=== PATIENT | female | born 1990 | race Caucasian/White ===

== ENCOUNTER → 2018-09-28 | Outpatient (CLI) | payer BC ==
--- NOTE | 2018-09-28 15:31 | Diagnostic Imaging Report ---
INDICATION: survey. TECHNIQUE: Multiple real-time grayscale images were obtained over the gravid uterus. COMPARISON: No priors. FINDINGS: A carreon gestation is in transverse position, head appears to be the maternal right based upon the submitted images. The placenta is anterior with no abruption or previa. Cervix is nondilated at 6.2 cm in length. The amniotic fluid volume appeared normal. No pathological finding at the anatomical survey. Heart rate is regular at 130 beats per minute. IMPRESSION: Carreon viable IUP measures 22 weeks 0 days with normal anatomical survey. Biometrical measurements are as follows: Biparietal 5.45 cm, age 22 weeks 5 days. Head circumference 20.59 cm, age 22 weeks 5 days. Abdominal circumference 16.74 cm, age 21 weeks 6 days. Femur length 3.37 cm, age 20 weeks 4 days. Sonographic estimate age: 22 weeks 0 days. Sonographic estimated date of delivery: 02/01/2019. Estimated Weight: 422 gm (+/- 62 gm). LMP percentile: 29%. heart rate: 130 beats per minute. number: 1 of 1. Dictated by: Dictated on workstation # [id number]
== END ==
LOC: RAD 10:53
PROVIDERS: ATTEND Obstetrics & Gynecology
DX: Z36.89 Encounter for other specified antenatal screening (principal); Z3A.22 22 weeks gestation of pregnancy
CPT/HCPCS: 76805

== ENCOUNTER 2019-01-14 17:56 | Outpatient (CLI) | payer BC ==
[~2019-01-14] VITALS: Ht 162.6 cm; Wt 83.5 kg
--- NOTE | 2019-01-14 18:00 | NUR ---
RAO TOLENTINO presented to unit via AMBULATORY from ED, accompanied by , with c/o ABD CRAMPING. RAO TOLENTINO weighed, gowned, voided, and to bed. EFHM and TOCO applied, VS taken. RAO TOLENTINO oriented to bed controls, call light, TV, heat, and A/C controls.
--- NOTE | 2019-01-14 18:40 | NUR ---
THIS RN CALLS DR JIMENEZ WITH PT REPORT. CO CRAMPING/ POSSIBLE UC. UC 2-4 MIN, PALPATING MODERATE. PT RATES PAIN 01/24. URINE DIP RESULTS. SVE 0.5CM/THICK. DENIES INTERCOURSE IN THE LAST 2 DAYS. ORDERS RECEIVED BY BY DR JIMENEZ TO START IV. GIVE 500ML BOLUS OF LR THEN 250ML/HR. RECHECK SVE AND CALL BACK AFTER IV FLUIDS
[2019-01-14] MEDS ORDERED: LACTATED RINGERS 500 ML IV SCH (18:45)
[2019-01-14] MEDS ORDERED: LACTATED RINGERS 1,000 ML IV SCH (19:00)
--- NOTE | 2019-01-14 19:10 | NUR ---
REPORT GIVEN TO CARLY FAUSTIN AT THIS TIME.
[2019-01-14] MEDS ORDERED: TERBUTALINE INJ 1 MG/ML (BRETHINE) AMP ONE (19:53)
[2019-01-14] MEDS ORDERED: TERBUTALINE INJ 1 MG/ML (BRETHINE) AMP SC ONE (20:00)
[2019-01-14] MEDS ORDERED: PREN1.4T2 PO (21:17)
--- NOTE | 2019-01-14 21:30 | NUR ---
Discharge packet given and explained, understanding voiced per pt. Ambulatory off unit at this time, no ss distress no concerns noted.
--- NOTE | 2019-01-18 12:38 | Physician Query-Final Dx ---
THEODORE GONSALVES 01/18/19 1238: Final Diagnosis Give Final Diagnosis Please give Final Diagnosis Dr March Please give a final diagnosis and please include the weeks of gestation thank you DALLAS MARCH DO 01/24/19 0718: Final Diagnosis Give Final Diagnosis Intrauterine at 36 weeks Contractions THEODORE GONSALVES Jan 18, 2019 12:38 DALLAS MARCH DO Jan 24, 2019 07:18
[2019-01-25] MEDS ORDERED: IBUP-844 PO (07:21)
== END 2019-01-14 21:30 | disposition home or self-care (01) ==
LOC: LDRP 17:56 → WSo 17:56
PROVIDERS: ATTEND Obstetrics & Gynecology
DX: O62.9 Abnormality of forces of labor, unspecified (principal); Z3A.36 36 weeks gestation of pregnancy
CPT/HCPCS: 96360; 96361; 96372; 99214

== ENCOUNTER 2019-01-22 00:45 | Outpatient (CLI) | payer BC ==
[~2019-01-22] VITALS: Ht 162.6 cm; Wt 83.5 kg
[~2019-01-22 00:45] MED LIST: PREN1.4T2 PO
--- NOTE | 2019-01-22 00:49 | NUR ---
RAO TOLENTINO presented to unit via ambulation from ED, accompanied by s.o., with c/o CONTRACTIONS, FLUID LEAKAGE. RAO TOLENTINO weighed, gowned, voided, and to bed. EFHM and TOCO applied, VS taken. RAO TOLENTINO oriented to bed controls, call light, TV, heat, and A/C controls.
[2019-01-22 01:00] VITALS: BP 157/96
[2019-01-22 01:05] VITALS: BP 157/96
[2019-01-22 01:08] VITALS: BP 124/72
[2019-01-22 01:11] VITALS: BP_SYST 136
[2019-01-22 01:15] VITALS: BP 161/75
[2019-01-22 01:20] VITALS: BP 135/89
[2019-01-22] MEDS ORDERED: NS IV 1000 ML 1,000 ML ONE (02:04)
[2019-01-22] MEDS ORDERED: NS IV 1000 ML 1,000 ML IV ONE (02:15)
[2019-01-22] MEDS ORDERED: PROMETHAZINE INJ 25 MG/ML (PHENERGAN) AMP IVP ONE (02:15)
[2019-01-22] MEDS ORDERED: PROMETHAZINE INJ 25 MG/ML (PHENERGAN) AMP ONE (02:15)
[2019-01-22 02:50] LABS: BILIRUBIN,URINE NEGATIVE (NEGATIVE); CLARITY,URINE CLEAR; COLOR,URINE YELLOW; GLUCOSE, URINE (UA) NEGATIVE (NEGATIVE); KETONES,URINE NEGATIVE (NEGATIVE); LEUKOCYTE ESTERASE ,URINE 3+ (NEGATIVE); NITRITE,URINE NEGATIVE (NEGATIVE); PH,URINE 7 (5-9); PROTEIN,URINE NEGATIVE (NEGATIVE); RBC,URINE 0-2 /HPF; UROBILINOGEN,URINE NORMAL (NORMAL)
[2019-01-22 02:51] LABS: BACTERIA,URINE FEW /HPF
--- NOTE | 2019-01-22 03:48 | NUR ---
Discharge instructions discussed with pt and family members. Pt denies any questions or concerns. IV removed. Signature sheet signed, placed on chart. Offered wheelchair, denied per pt. Pt ambulating off unit to private vehicle with family members at side. No signs of distress noted.
--- NOTE | 2019-01-23 11:52 | Physician Query-Final Dx ---
Final Diagnosis Give Final Diagnosis Please give Final Diagnosis 37 week gestation threatened labor/contractions GALE YANG DO Jan 23, 2019 11:52
[2019-01-23] MEDS ORDERED: ACET325C5 PO (14:04)
[2019-01-23] MEDS ORDERED: FAMO40TA72 PO (14:04)
[2019-01-23] MEDS ORDERED: PREN1TAB79 PO (14:04)
[2019-01-23] MEDS ORDERED: CALC300T4 PO (14:04)
== END 2019-01-22 03:48 | disposition home or self-care (01) ==
LOC: WSo 00:45 → LDRP 00:46 → WSo 03:48
PROVIDERS: ATTEND Obstetrics & Gynecology
DX: O47.1 False labor at or after 37 completed weeks of gestation (principal); Z3A.37 37 weeks gestation of pregnancy
CPT/HCPCS: 81000; 87088; 96361; 96374; 99214

== ENCOUNTER 2019-01-23 11:13 | Inpatient (IN) | payer BC ==
[2019-01-23] VITALS (45 sets, daily range): BP systolic 97–161; BP diastolic 59–102
[~2019-01-23] VITALS: Ht 162.6 cm; Wt 83.5 kg
[2019-01-23] MEDS ORDERED: MINERAL OIL CONCENTRATE 99.9% 15 ML UDC TOP PRN (11:30)
[2019-01-23] MEDS ORDERED: OXYTOCIN/NORMAL SALINE 500 ML IV ONE ×2 (11:43→23:16)
[2019-01-23] MEDS ORDERED: SUFENTA 0.6MCG/ML BUPIVA 0.125 100 ML ONE (11:44)
[2019-01-23 11:53] LABS: BASOPHILS % (AUTO) 0 % (0-10); EOSINOPHILS % (AUTO) 0 % (0-10); HEMATOCRIT 40 % (35-52); LYMPHOCYTES % (AUTO) 7 % (12-44); MEAN CORPUSCULAR HEMOGLOBIN 34 PG (25-34); MEAN CORPUSCULAR HGB CONC 35 G/DL (32-36); MEAN CORPUSCULAR VOLUME 96 FL (80-99); MEAN PLATELET VOLUME 11.6 FL (7.4-10.4); MONOCYTES # (AUTO) 0.5 X 10^3 (0.0-1.0); MONOCYTES % (AUTO) 4 % (0-12); NEUTROPHILS % (AUTO) 89 % (42-75); PLATELET COUNT 216 10^3/uL (130-400); RED CELL DISTRIBUTION WIDTH 12.4 % (10.0-14.5); WHITE BLOOD COUNT 13.6 10^3/uL (4.3-11.0)
[2019-01-23] MEDS: D5 LR IV SOLUTION 1,000 ML IV SCH ×2 (11:55→19:48)
--- NOTE | 2019-01-23 11:59 | History & Physical-OB ---
OB - Chief Complaint & HPI Date/Time Date of Admission: Date of Admission: Jan 23, 2019 at 11:25 am Date seen by a Provider: Jan 23, 2019 Time Seen by a Provider: 12:10 Chief Complaint/History OB-Reason for Admission/Chief: Onset of Labor Hx : 1 Hx Para: 0 Expected Date of Delivery: Feb 10, 2019 Gestational Age in Weeks: 37 Gestational Age in Days: 4 Admission Nurse Assessment Rev: Yes History of Labs A+/- VDRL NR Rub I Hep C - HIV - HBsAg - GBS - Other Came to women's services early am of 01/22/ with complaint of mucoid dc and contractions. She did not have ROM. She did not make cervical change during the time she was evaluated (1 cm dilation, also the same in the office on Thursday). She did have an elevated BP, though I was not informed of this by nursing. Her repeat BP was wnl. She presents today for continued contractions. Cervix 4/100/0. Also complains of two days of vomiting (though she did not mention this yesterday or in the office on Thursday). BP 145/102 but she is in acute pain. Labs and repeat BP are pending. She will be admitted for active labor and anticipate . well being is reassuring. Allergies and Home Medications Allergies Coded Allergies: No Known Drug Allergies (Unverified , 01/14/19) Home Medications Comb No.42/Folic Acid 1.4 Mg Tab.ch.bph, 1.4 MG PO DAILY, (Reported) Patient Home Medication List Home Medication List Reviewed: Yes OB - History Hx of Present Care: Yes Ultrasounds: Normal mid trimester US Obstetrical Complications: None Medical Complications: None Information Induced Hypertension: No Maternal Gestational Diabetes: No Hemorrhage: No Obstetrical History Hx : 1 Hx Para: 0 Hx # Term Pregnancies: 0 Hx # Pregnancies: 0 Number of Living Children: 0 Hx Termination: No Patient Past Medical History NC Social History/Family History HIV/AIDS: No Recent Infectious Disease Expo: No Sexually Transmitted Disease: No Alcohol Use: Denies Use Recreational Drug Use: No Smoking Cessation: Former smoker Immunizations Hepatitis A: No Hepatitis B: Yes Tetanus Booster (TDap): Less than 5yrs Date of Pneumonia Vaccine: Nov 15, 2018 Rubella: immune RPR/VDRL: Negative GBS Status: Negative HBsAG: Negative OB - Admission Exam Physical Exam Vitals: Vital Signs 01/23/19 11:20 Temp 98.0 Pulse 108 Resp 22 B/P (MAP) 145/102 (116) O2 Delivery Room Air Heart: Rhythm Normal Lungs: Clear Abdomen: Gravid Extremities: Edema Reflexes: Normal Cervical Dilatation: 4cm Effacement: 100% Station: 0 Membranes: Intact Heart Rate: 130's Accelerations: Accelerations Present Decelerations: No Decelerations Short Term Variability: Present Skilled Nursing Variability: Average (6-25) Contractions on Admission: < 5 Minutes Apart Labs Laboratory Tests Test 01/23/19 11:43 Range/Units OB - Assessment/Plan/Diagnosis Assessment Assessment: active labor, other (elevated blood pressures, labs and repeat BP/ prot/creat ratio are pending.) Admission Dx 1. spontaneous labor at 37 weeks gestation 2. elevated blood pressures, rule out preeclampsia Admission Status: Inpatient Order (span 2 midnights) (labor) Reason for Inpatient Admission: labor Plan Plan: Expectant Management (At this point will admit for active labor. If labs abnl, pro/creat elevated, or BP continue to be elevated in severe range, will treat preeclampsia. Anticipate . Await epidural) GALE YANG DO Jan 23, 2019 11:59
[2019-01-23 12:08] LABS: BILIRUBIN,URINE NEGATIVE (NEGATIVE); CLARITY,URINE CLEAR; COLOR,URINE YELLOW; GLUCOSE, URINE (UA) NEGATIVE (NEGATIVE); KETONES,URINE 4+ (NEGATIVE); LEUKOCYTE ESTERASE ,URINE 2+ (NEGATIVE); NITRITE,URINE NEGATIVE (NEGATIVE); PH,URINE 6.5 (5-9); PROTEIN,URINE 2+ (NEGATIVE); UROBILINOGEN,URINE NORMAL (NORMAL)
[2019-01-23 12:11] LABS: ALANINE AMINOTRANSFERASE 27 U/L (0-55); ALBUMIN 3.6 GM/DL (3.2-4.5); ALKALINE PHOSPHATASE 209 U/L (40-136); BILIRUBIN,TOTAL 0.6 MG/DL (0.1-1.0); BUN/CREATININE RATIO 6; CALCIUM 9.4 MG/DL (8.5-10.1); CARBON DIOXIDE 15 MMOL/L (21-32); CHLORIDE 107 MMOL/L (98-107); CREATININE SERUM 0.69 MG/DL (0.60-1.30); GFR ESTIMATED > 60; GLUCOSE 84 MG/DL (70-105); POTASSIUM 3.1 MMOL/L (3.6-5.0); SODIUM 138 MMOL/L (135-145); TOTAL PROTEIN 6.8 GM/DL (6.4-8.2)
[2019-01-23 12:26] LABS: BACTERIA,URINE NEGATIVE /HPF; RBC,URINE 50-100 /HPF
[2019-01-23] MEDS: EPIDURAL (SUFENTA 0.6MCG/ML BUPIVA 0.125%) 100 ML BAG EPI SCH ×2 (12:59→20:15)
[2019-01-23] MEDS ORDERED: LACTATED RINGERS 1,000 ML IV SCH (13:04)
[2019-01-23] MEDS ORDERED: diphenhydrAMINE 50 MG/ML INJ (BENADRYL) IV PRN (13:15)
[2019-01-23] MEDS ORDERED: ONDANSETRON 4 MG/2 ML (SDV) Z0FRAN IV PRN (13:15)
[2019-01-23] MEDS ORDERED: METOCLOPRAMIDE INJ 10 MG/2 ML (REGLAN) IV PRN (13:15)
[2019-01-23] MEDS ORDERED: NALOXONE 0.4 MG/ML 1 ML (NARCAN) VIAL IV PRN ×2 (13:15)
[2019-01-23] MEDS ORDERED: CATHETER FLUSH 10 ML SYR IV SCH ×2 (14:00→22:00)
[2019-01-23] MEDS ORDERED: FAMO40TA72 PO (14:04)
[2019-01-23] MEDS ORDERED: PREN1TAB79 PO (14:04)
[2019-01-23] MEDS ORDERED: CALC300T4 PO (14:04)
[2019-01-23] MEDS ORDERED: ACET325C5 PO (14:04)
[2019-01-23] MEDS ORDERED: FAMOTIDINE 20MG/2ML IV (PEPCID) ONE (18:20)
[2019-01-23] MEDS ORDERED: FAMOTIDINE 20MG/2ML IV (PEPCID) IVP ONE (18:30)
[2019-01-23] MEDS ORDERED: LIDOCAINE/EPI 2% 1:200,00 (XYLOCAINE) 10 ML VIAL ONE (19:42)
[2019-01-23] MEDS ORDERED: OXYTOCIN/NORMAL SALINE 500 ML IV SCH (21:23)
--- NOTE | 2019-01-23 21:29 | OB Labor & Delivery Record ---
Vag Delivery Note Vag Delivery Note Date of Delivery: 01/23/19 Preoperative Diagnosis: Ashley Plummer is a 28 /Para 1 / 0,Gestational Age 37 3/7 weeks with labor and preeclampsia, mild Postoperative Diagnosis: Same Surgeon: GALE YANG Anesthesia: epidural Delivery Type: vaginal Findings: Viable female , apgars 8/9, weight 6#15ounces Lacerations: 2nd degree Intact placenta with 3 vessel cord. No nuchal cord, body cord or shoulder dystocia Cytotec 800 mcg placed for hemorrhage prophylaxis Estimated Blood Loss: 300 ml Complications: None Condition: Stable Description of Procedure: The patient is a 28 /Para 1 / 0,Gestational Age 37 3/7 weeks with labor and preeclampsia, mild. She was admitted and informed consent was obtained. Her labor course was remarkable for pitocin augmentation after 6 cm x 3 hours, SROM She progressed to complete dilatation and began to push. She was then set up for delivery. The 's head was delivered atraumatically in the SHAREE position. The shoulders and remainder of the 's body were then delivered without difficulty. Upon delivery, the head was held below the level of the perineum and the mouth and nares were bulb suctioned. The cord was doubly clamped and cut and the was handed off to the pediatric staff. An intact placenta with 3-vessel cord delivered via Louisa and there was found to be minimal bleeding.~ Vigorous fundal massage was performed and the fundus was found to be firm. IV oxytocin was given. Examination of the vagina and perineum revealed a 2nd laceration repaired in the usual fashion with 3-0 vicryl suture. Following the repair, sponge, instrument and needle counts were correct. Mom and baby were both in stable condition in the labor suite. Vitals - Labs Vital Signs - I&O Vital Signs Date Time Temp Pulse Resp B/P (MAP) Pulse Ox O2 Delivery O2 Flow Rate FiO2 01/23/19 19:00 99.2 101 20 118/69 (85) 98 Room Air 01/23/19 18:45 93 20 140/78 (98) 97 Room Air 01/23/19 18:30 106 20 146/94 (111) 99 Room Air 01/23/19 18:15 98.8 91 20 137/87 (104) 97 Room Air 01/23/19 18:00 99.5 87 20 139/92 (108) 97 Room Air 01/23/19 17:45 113 20 138/85 (102) 98 Room Air 01/23/19 17:30 94 20 135/92 (106) 99 Room Air 01/23/19 17:15 98.7 89 20 161/78 (105) 99 Room Air 01/23/19 17:00 88 20 129/78 (95) 99 Room Air 01/23/19 16:45 98.4 84 20 98 Room Air 01/23/19 16:30 85 20 141/80 (100) 98 Room Air 01/23/19 16:15 86 20 144/76 (98) 98 Room Air 01/23/19 16:00 98.2 95 20 151/93 (112) 98 Room Air 01/23/19 15:45 91 20 145/90 (108) 98 Room Air 01/23/19 15:30 98.3 91 20 138/91 (107) 97 Room Air 01/23/19 15:15 84 20 134/82 (99) 99 Room Air 01/23/19 15:00 100 20 141/90 (107) 98 Room Air 01/23/19 14:45 90 20 148/83 (104) 97 Room Air 01/23/19 14:30 97.5 84 20 137/87 (104) 98 Room Air 01/23/19 14:15 92 20 129/84 (99) 99 Room Air 01/23/19 14:00 94 20 138/87 (104) 99 Room Air 01/23/19 13:45 104 20 97/59 (72) 99 Room Air 01/23/19 13:30 97.1 98 20 109/61 (77) 98 Room Air 01/23/19 13:15 109 20 116/64 (81) 97 Room Air 01/23/19 12:59 120 20 136/78 (97) 97 Room Air 01/23/19 12:58 113 20 135/75 (95) 97 Room Air 01/23/19 12:54 110 20 151/72 (98) 97 Room Air 01/23/19 12:52 103 20 150/68 (95) 97 Room Air 01/23/19 12:51 112 20 146/89 (108) 97 Room Air 01/23/19 12:45 110 20 126/79 (95) 99 Room Air 01/23/19 12:37 100 20 125/72 (89) 96 Room Air 01/23/19 12:15 100 20 157/99 (118) Room Air 01/23/19 11:20 98.0 108 22 145/102 (116) Room Air Labs Laboratory Tests 01/23/19 11:25: Urine Color YELLOW, Urine Clarity CLEAR, Urine pH 6.5, Urine Specific [place] 1.010L, Urine Protein 19H, Urine Glucose (UA) NEGATIVE, Urine Ketones 4+H, Urine Nitrite NEGATIVE, Urine Bilirubin NEGATIVE, Urine Urobilinogen NORMAL, Urine Leukocyte Esterase 2+H, Urine RBC (Auto) 5+H, Urine RBC 50-100H, Urine WBC 2-5, Urine Squamous Epithelial Cells 2-5, Urine Crystals NONE, Urine Bacteria NEGATIVE, Urine Casts NONE, Urine Mucus NEGATIVE, Urine Culture Indicated NO, Urine Creatinine 72, Urine Protein/Creatinine Ratio 0.26 01/23/19 11:43: White Blood Count 13.6H, Red Blood Count 4.16L, Hemoglobin 14.0, Hematocrit 40, Mean Corpuscular Volume 96, Mean Corpuscular Hemoglobin 34, Mean Corpuscular Hemoglobin Concent 35, Red Cell Distribution Width 12.4, Platelet Count 216, Mean Platelet Volume 11.6H, Neutrophils (%) (Auto) 89H, Lymphocytes (%) (Auto) 7L, Monocytes (%) (Auto) 4, Eosinophils (%) (Auto) 0, Basophils (%) (Auto) 0, Neutrophils # (Auto) 12.0H, Lymphocytes # (Auto) 1.0, Monocytes # (Auto) 0.5, Eosinophils # (Auto) 0.0, Basophils # (Auto) 0.0, Sodium Level 138, Potassium Level 3.1L, Chloride Level 107, Carbon Dioxide Level 15L, Anion Gap 16H, Blood Urea Nitrogen 4L, Creatinine 0.69, Estimat Glomerular Filtration Rate > 60, BUN/Creatinine Ratio 6, Glucose Level 84, Calcium Level 9.4, Corrected Calcium 9.7, Total Bilirubin 0.6, Aspartate Amino Transf (AST/SGOT) 18, Alanine Aminotransferase (ALT/SGPT) 27, Alkaline Phosphatase 209H, Lactate Dehydrogenase 172, Total Protein 6.8, Albumin 3.6 GALE YANG DO Jan 23, 2019 21:29
[2019-01-23] MEDS ORDERED: MEASLES,MUMPS,RUBELLA 1 EA INJ SQ ONE (21:30)
[2019-01-23] MEDS ORDERED: BENZOCAINE/MENTHOL (DERMOPLAST) 56 ML CAN TP PRN (21:30)
[2019-01-23] MEDS ORDERED: DIBUCAINE (NUPERCAINAL) 1% OINT 30 GM TOP PRN (21:30)
[2019-01-23] MEDS ORDERED: WITCH HAZEL(TUCKS) 40 EA JAR TOP PRN (21:30)
[2019-01-23] MEDS ORDERED: TETANUS,DIPTH,PERTUSS P/F (BOOSTRIX) 0.5 ML VIAL IM ONE (21:30)
[2019-01-23] MEDS ORDERED: MISOPROSTOL 200 MCG (CYTOTEC) TABLET PR PRN (21:30)
[2019-01-23] MEDS ORDERED: ACETAMINOPHEN 500 MG TAB (TYLENOL) ONE (22:22)
[2019-01-23] MEDS: ACETAMINOPHEN 500 MG TAB (TYLENOL) PO SCH (22:27)
[2019-01-24] MEDS: IBUPROFEN 600 MG (MOTRIN) TAB PO SCH ×4 (00:05→21:00)
[2019-01-24 03:35] VITALS: BP 126/86
[2019-01-24] MEDS: ACETAMINOPHEN 500 MG TAB (TYLENOL) PO SCH ×3 (05:52→21:43)
[2019-01-24 06:11] LABS: BASOPHILS % (AUTO) 0 % (0-10); EOSINOPHILS # (AUTO) 0.1 10^3/uL (0.0-0.3); EOSINOPHILS % (AUTO) 0 % (0-10); HEMATOCRIT 35 % (35-52); HEMOGLOBIN 12.2 G/DL (11.5-16.0); LYMPHOCYTES # (AUTO) 1.9 X 10^3 (1.0-4.0); LYMPHOCYTES % (AUTO) 14 % (12-44); MEAN CORPUSCULAR HEMOGLOBIN 34 PG (25-34); MEAN CORPUSCULAR HGB CONC 35 G/DL (32-36); MEAN CORPUSCULAR VOLUME 96 FL (80-99); MEAN PLATELET VOLUME 11.3 FL (7.4-10.4); MONOCYTES # (AUTO) 1.1 X 10^3 (0.0-1.0); MONOCYTES % (AUTO) 8 % (0-12); NEUTROPHILS # (AUTO) 10.8 X 10^3 (1.8-7.8); NEUTROPHILS % (AUTO) 77 % (42-75); PLATELET COUNT 203 10^3/uL (130-400); RED CELL DISTRIBUTION WIDTH 12.6 % (10.0-14.5); WHITE BLOOD COUNT 13.9 10^3/uL (4.3-11.0)
[2019-01-24 09:45] VITALS: BP 119/75
[2019-01-24] MEDS: DOCUSATE SODIUM 100 MG (COLACE) CAP PO SCH ×2 (09:45→21:00)
[2019-01-24] MEDS: PRENATAL VITAMIN 1 EA TAB PO SCH (09:45)
[2019-01-24] MEDS: FERROUS SULF 325 MG (IRON) TAB PO SCH (09:45)
--- NOTE | 2019-01-24 09:52 | Postpartum Progress Note ---
Note Note Day # 1 s/p Subjective: Patient is without complaints. Ambulating, voiding. Tolerating a regular diet without nausea or vomiting. Normal lochia. Pain is well controlled with oral pain medications. [] feeding. [] Objective: 01/23/19 01/23/19 01/23/19 01/24/19 22:03 22:33 23:03 03:35 Temp 98.4 98.1 Pulse 81 83 90 76 Resp 18 18 18 18 B/P (MAP) 104/76 (85) 138/68 (91) 137/68 (91) 126/86 (99) Pulse Ox 97 O2 Delivery Room Air Room Air Room Air Room Air 01/24/19 00:00 Intake Total 2000 ml Output Total 700 ml Balance 1300 ml Laboratory Tests Test 01/23/19 11:25 01/23/19 11:43 01/24/19 05:58 Range/Units Urine Color YELLOW Urine Clarity CLEAR Urine pH 6.5 5-9 Urine Specific Emma 1.010 L 1.016-1.022 Urine Protein 19 H 6-12 MG/DL Urine Glucose (UA) NEGATIVE NEGATIVE Urine Ketones 4+ H NEGATIVE Urine Nitrite NEGATIVE NEGATIVE Urine Bilirubin NEGATIVE NEGATIVE Urine Urobilinogen NORMAL NORMAL MG/DL Urine Leukocyte Esterase 2+ H NEGATIVE Urine RBC (Auto) 5+ H NEGATIVE Urine RBC 50-100 H /HPF Urine WBC 2-5 /HPF Urine Squamous Epithelial Cells 2-5 /HPF Urine Crystals NONE /LPF Urine Bacteria NEGATIVE /HPF Urine Casts NONE /LPF Urine Mucus NEGATIVE /LPF Urine Culture Indicated NO Urine Creatinine 72 30-125 MG/DL Urine Protein/Creatinine Ratio 0.26 White Blood Count 13.6 H 13.9 H 4.3-11.0 10^3/uL Red Blood Count 4.16 L 3.60 L 4.35-5.85 10^6/uL Hemoglobin 14.0 12.2 11.5-16.0 G/DL Hematocrit 40 35 35-52 % Mean Corpuscular Volume 96 96 80-99 FL Mean Corpuscular Hemoglobin 34 34 25-34 PG Mean Corpuscular Hemoglobin Concent 35 35 32-36 G/DL Red Cell Distribution Width 12.4 12.6 10.0-14.5 % Platelet Count 216 203 130-400 10^3/uL Mean Platelet Volume 11.6 H 11.3 H 7.4-10.4 FL Neutrophils (%) (Auto) 89 H 77 H 42-75 % Lymphocytes (%) (Auto) 7 L 14 12-44 % Monocytes (%) (Auto) 4 8 0-12 % Eosinophils (%) (Auto) 0 0 0-10 % Basophils (%) (Auto) 0 0 0-10 % Neutrophils # (Auto) 12.0 H 10.8 H 1.8-7.8 X 10^3 Lymphocytes # (Auto) 1.0 1.9 1.0-4.0 X 10^3 Monocytes # (Auto) 0.5 1.1 H 0.0-1.0 X 10^3 Eosinophils # (Auto) 0.0 0.1 0.0-0.3 10^3/uL Basophils # (Auto) 0.0 0.0 0.0-0.1 10^3/uL Sodium Level 138 135-145 MMOL/L Potassium Level 3.1 L 3.6-5.0 MMOL/L Chloride Level 107 98-107 MMOL/L Carbon Dioxide Level 15 L 21-32 MMOL/L Anion Gap 16 H 5-14 MMOL/L Blood Urea Nitrogen 4 L 7-18 MG/DL Creatinine 0.69 0.60-1.30 MG/DL Estimat Glomerular Filtration Rate > 60 BUN/Creatinine Ratio 6 Glucose Level 84 70-105 MG/DL Calcium Level 9.4 8.5-10.1 MG/DL Corrected Calcium 9.7 8.5-10.1 MG/DL Total Bilirubin 0.6 0.1-1.0 MG/DL Aspartate Amino Transf (AST/SGOT) 18 5-34 U/L Alanine Aminotransferase (ALT/SGPT) 27 0-55 U/L Alkaline Phosphatase 209 H 40-136 U/L Lactate Dehydrogenase 172 125-220 U/L Total Protein 6.8 6.4-8.2 GM/DL Albumin 3.6 3.2-4.5 GM/DL Physical Exam: General - Alert and oriented, no apparent distress Abdomen - Soft, appropriately tender to palpation, non-distended, fundus firm at umbilicus Extremities - no edema, negative Catherine's bilaterally [] Assessment: [] post- day # [], status post [] vaginal delivery. Recovering well, hemodynamically stable [] Plan: Routine care. Encourage breast feeding. Encourage ambulation. Ferrous sulfate supplementation. Plan for discharge [] Vitals - Labs Vital Signs - I&O Vital Signs Date Time Temp Pulse Resp B/P (MAP) Pulse Ox O2 Delivery O2 Flow Rate FiO2 01/24/19 03:35 98.1 76 18 126/86 (99) 97 Room Air 01/23/19 23:03 90 18 137/68 (91) Room Air 01/23/19 22:33 83 18 138/68 (91) Room Air 01/23/19 22:03 98.4 81 18 104/76 (85) Room Air 01/23/19 21:49 85 18 132/62 (85) Room Air 01/23/19 21:34 94 18 128/70 (89) Room Air 01/23/19 21:19 96 18 136/79 (98) Room Air 01/23/19 21:02 141 20 97 Room Air 01/23/19 20:45 99.2 92 20 150/87 (108) Room Air 01/23/19 20:30 81 20 146/86 (106) Room Air 01/23/19 20:15 80 20 141/81 (101) Room Air 01/23/19 20:00 78 20 140/84 (102) 98 Room Air 01/23/19 19:45 98.4 86 20 152/86 (108) 98 Room Air 01/23/19 19:30 86 20 129/71 (90) 98 Room Air 01/23/19 19:15 90 20 125/72 (89) 98 Room Air 01/23/19 19:00 99.2 101 20 118/69 (85) 98 Room Air 01/23/19 18:45 93 20 140/78 (98) 97 Room Air 01/23/19 18:30 106 20 146/94 (111) 99 Room Air 01/23/19 18:15 98.8 91 20 137/87 (104) 97 Room Air 01/23/19 18:00 99.5 87 20 139/92 (108) 97 Room Air 01/23/19 17:45 113 20 138/85 (102) 98 Room Air 01/23/19 17:30 94 20 135/92 (106) 99 Room Air 01/23/19 17:15 98.7 89 20 161/78 (105) 99 Room Air 01/23/19 17:00 88 20 129/78 (95) 99 Room Air 01/23/19 16:45 98.4 84 20 98 Room Air 01/23/19 16:30 85 20 141/80 (100) 98 Room Air 01/23/19 16:15 86 20 144/76 (98) 98 Room Air 01/23/19 16:00 98.2 95 20 151/93 (112) 98 Room Air 01/23/19 15:45 91 20 145/90 (108) 98 Room Air 01/23/19 15:30 98.3 91 20 138/91 (107) 97 Room Air 01/23/19 15:15 84 20 134/82 (99) 99 Room Air 01/23/19 15:00 100 20 141/90 (107) 98 Room Air 01/23/19 14:45 90 20 148/83 (104) 97 Room Air 01/23/19 14:30 97.5 84 20 137/87 (104) 98 Room Air 01/23/19 14:15 92 20 129/84 (99) 99 Room Air 01/23/19 14:00 94 20 138/87 (104) 99 Room Air 01/23/19 13:45 104 20 97/59 (72) 99 Room Air 01/23/19 13:30 97.1 98 20 109/61 (77) 98 Room Air 01/23/19 13:15 109 20 116/64 (81) 97 Room Air 01/23/19 12:59 120 20 136/78 (97) 97 Room Air 01/23/19 12:58 113 20 135/75 (95) 97 Room Air 01/23/19 12:54 110 20 151/72 (98) 97 Room Air 01/23/19 12:52 103 20 150/68 (95) 97 Room Air 01/23/19 12:51 112 20 146/89 (108) 97 Room Air 01/23/19 12:45 110 20 126/79 (95) 99 Room Air 01/23/19 12:37 100 20 125/72 (89) 96 Room Air 01/23/19 12:15 100 20 157/99 (118) Room Air 01/23/19 11:20 98.0 108 22 145/102 (116) Room Air I & O 01/24/19 07:00 Intake Total 3650 ml Output Total 700 ml Balance 2950 ml Labs Laboratory Tests 01/23/19 11:25: Urine Color YELLOW, Urine Clarity CLEAR, Urine pH 6.5, Urine Specific [place] 1.010L, Urine Protein 19H, Urine Glucose (UA) NEGATIVE, Urine Ketones 4+H, Urine Nitrite NEGATIVE, Urine Bilirubin NEGATIVE, Urine Urobilinogen NORMAL, Urine Leukocyte Esterase 2+H, Urine RBC (Auto) 5+H, Urine RBC 50-100H, Urine WBC 2-5, Urine Squamous Epithelial Cells 2-5, Urine Crystals NONE, Urine Bacteria NEGATIVE, Urine Casts NONE, Urine Mucus NEGATIVE, Urine Culture Indicated NO, Urine Creatinine 72, Urine Protein/Creatinine Ratio 0.26 01/23/19 11:43: White Blood Count 13.6H, Red Blood Count 4.16L, Hemoglobin 14.0, Hematocrit 40, Mean Corpuscular Volume 96, Mean Corpuscular Hemoglobin 34, Mean Corpuscular Hemoglobin Concent 35, Red Cell Distribution Width 12.4, Platelet Count 216, Mean Platelet Volume 11.6H, Neutrophils (%) (Auto) 89H, Lymphocytes (%) (Auto) 7 L, Monocytes (%) (Auto) 4, Eosinophils (%) (Auto) 0, Basophils (%) (Auto) 0, Neutrophils # (Auto) 12.0H, Lymphocytes # (Auto) 1.0, Monocytes # (Auto) 0.5, Eosinophils # (Auto) 0.0, Basophils # (Auto) 0.0, Sodium Level 138, Potassium Level 3.1L, Chloride Level 107, Carbon Dioxide Level 15L, Anion Gap 16H, Blood Urea Nitrogen 4L, Creatinine 0.69, Estimat Glomerular Filtration Rate > 60, BUN/Creatinine Ratio 6, Glucose Level 84, Calcium Level 9.4, Corrected Calcium 9.7, Total Bilirubin 0.6, Aspartate Amino Transf (AST/SGOT) 18, Alanine Aminotransferase (ALT/SGPT) 27, Alkaline Phosphatase 209H, Lactate Dehydrogenase 172, Total Protein 6.8, Albumin 3.6 01/24/19 05:58: White Blood Count 13.9H, Red Blood Count 3.60L, Hemoglobin 12.2, Hematocrit 35, Mean Corpuscular Volume 96, Mean Corpuscular Hemoglobin 34, Mean Corpuscular Hemoglobin Concent 35, Red Cell Distribution Width 12.6, Platelet Count 203, Mean Platelet Volume 11.3H, Neutrophils (%) (Auto) 77H, Lymphocytes (%) (Auto) 14, Monocytes (%) (Auto) 8, Eosinophils (%) (Auto) 0, Basophils (%) (Auto) 0, Neutrophils # (Auto) 10.8H, Lymphocytes # (Auto) 1.9, Monocytes # (Auto) 1.1H, Eosinophils # (Auto) 0.1, Basophils # (Auto) 0.0 GALE YANG DO Jan 24, 2019 09:52
[2019-01-24 12:00] VITALS: BP 128/75
--- NOTE | 2019-01-24 14:13 | Anesthesia-Regional Post-Op ---
Regional Patient Condition Mental Status: Alert, Oriented x3 Circulation: Same as Pre-Op Headache: Absent Sensation: Full Recovery Motor Block: Absent Post Op Complications Complications None Follow Up Care/Instructions Patient Instructions None needed. Anesthesia/Patient Condition Patient is doing well, no complaints, stable vital signs, no apparent adverse anesthesia problems. No complications reported per nursing. D/C home per [facility] Criteria: Yes REJI RAMIREZ CRNA Jan 24, 2019 14:13
[2019-01-24 18:18] VITALS: BP 118/74
[2019-01-24 21:00] VITALS: BP 121/77
[2019-01-25 03:15] VITALS: BP 121/84
[2019-01-25] MEDS: IBUPROFEN 600 MG (MOTRIN) TAB PO SCH ×3 (03:15→12:00)
[2019-01-25] MEDS: ACETAMINOPHEN 500 MG TAB (TYLENOL) PO SCH (06:15)
[2019-01-25] MEDS ORDERED: IBUP-844 PO (07:21)
--- NOTE | 2019-01-25 07:22 | Discharge Inst-Women's Service ---
Discharge Inst-Women's Serv Depart Medication/Instructions New, Converted or Re-Newed RX: Call to Patients Pharmacy Final Diagnosis spontaneous labor vaginal delivery epidural Consults/Follow Up Additional Follow Up: Yes (1-2 weeks and 6 weeks) Activity Activity: Activity as Tolerated Driving Instructions: You May Drive NO SMOKING: NO SMOKING Nothing Inside Vagina: No Douching, No [place], No Tampons Diet Discharge Diet: No Restrictions Symptoms to Report to : Swelling Increased, Bleeding Excessive, Pain Increased, Fever Over 101 Degrees F, Vaginal Bleeding Increase, Cramps in Feet or Legs, Vaginal Discharge Foul Skin/Wound Care Bathing Instructions: GALE Bermudze DO Jan 25, 2019 07:22
[2019-01-25 07:45] VITALS: BP 115/73
[2019-01-25] MEDS: DOCUSATE SODIUM 100 MG (COLACE) CAP PO SCH (10:19)
[2019-01-25] MEDS: FERROUS SULF 325 MG (IRON) TAB PO SCH (10:19)
[2019-01-25] MEDS: PRENATAL VITAMIN 1 EA TAB PO SCH (10:20)
== END 2019-01-25 12:40 | disposition home or self-care (01) | DRG 807 ==
LOC: LDRP 11:13 → WSo 11:13 → LDRP 11:25
PROVIDERS: ADMIT Obstetrics & Gynecology; ATTEND Obstetrics & Gynecology
PROC: 10E0XZZ Delivery of Products of Conception, External Approach (ICD-10-PCS; principal; 2019-01-23)
PROC: 0KQM0ZZ Repair Perineum Muscle, Open Approach (ICD-10-PCS; 2019-01-23)
DX: O14.04 Mild to moderate pre-eclampsia, complicating childbirth (principal); O70.1 Second degree perineal laceration during delivery; Z3A.37 37 weeks gestation of pregnancy; Z37.0 Single live birth; Z87.891 Personal history of nicotine dependence
CPT/HCPCS: 36415; 80053; 81000; 82570; 83615; 84156; 85025; 86850; 86900; 86901; 90471; 99212

== ENCOUNTER → 2022-02-27 | Outpatient (CLI) | payer BC, OTHER ==
[~2022-02-27] MED LIST changes: +ACET325C7 PO; +CALC300T4 PO; +FAMO40TA72 PO; +IBUP-844 PO; +PREN1TAB79 PO
--- NOTE | 2022-02-27 17:04 | Diagnostic Imaging Report ---
INDICATION: anatomy survey TECHNIQUE: Multiple real-time grayscale images were obtained over the gravid uterus. COMPARISON: None available for this FINDINGS: The cervix measures 5.8 cm in length. The placenta is anteriorly positioned and there is no previa, with the tip of the placenta 5.2 cm above from the internal cervical os. The amount of amniotic fluid appears visually appropriate. anatomy survey is performed and the following structures are visualized and normal: Cerebellum, cisterna magna, urinary bladder, umbilical cord insertion, three-vessel cord, kidneys, stomach, left ventricular outflow tract, right ventricular outflow tract, four-chamber heart and spine. Biometrical measurements are as follows: Biparietal 4.89 cm, age 20 weeks 6 days. Head circumference 18.40 cm, age 20 weeks 6 days. Abdominal circumference 15.29 cm, age 20 weeks 4 days. Femur length 3.18 cm, age 20 weeks 0 days. Sonographic estimate age: 20 weeks 4 days. Sonographic estimated date of delivery: 07/13/2022. Estimated Weight: 344 gm (+/- 51 gm). LMP percentile: 62%. heart rate: 153 beats per minute. number: 1 of 1. IMPRESSION: Single live intrauterine patency with normal anatomy survey. Dictated by: Dictated on workstation # [id number]
== END ==
LOC: RAD 14:39
PROVIDERS: ATTEND Nurse Practitioner Women's Health
DX: Z34.02 Encounter for supervision of normal first pregnancy, second trimester (principal); Z3A.20 20 weeks gestation of pregnancy
CPT/HCPCS: 76805

== ENCOUNTER 2022-07-03 17:20 | Inpatient (IN) | payer OTHER ==
[~2022-07-03] VITALS: Ht 162.6 cm; Wt 85.4 kg
[2022-07-03] VITALS (12 sets, daily range): BP systolic 127–173; BP diastolic 71–114
[~2022-07-03 17:20] MED LIST changes: -ACHD5005 PO; -BENZ78AE5 TP; -DIBU30OI TOP; -DOCU100C37 PO; -FERR325T24 PO; -LABE200T10 PO
[2022-07-03] MEDS ORDERED: TERBUTALINE INJ 1 MG/ML (BRETHINE) AMP SC PRN (19:00)
[2022-07-03] MEDS ORDERED: LACTATED RINGERS 1,000 ML IV ONE (19:00)
[2022-07-03] MEDS ORDERED: HYDROmorphone 2 MG/ML VIAL (DILAUDID) IV ONE (19:00)
[2022-07-03] MEDS ORDERED: LIDOCAINE 1% INJ 20 ML VIAL IJ PRN (19:00)
[2022-07-03 19:19] LABS: BASOPHILS % (AUTO) 0 % (0-10); EOSINOPHILS % (AUTO) 0 % (0-10); HEMATOCRIT 36 % (35-52); HEMOGLOBIN 12.4 g/dL (11.5-16.0); LYMPHOCYTES # (AUTO) 1.5 10^3/uL (1.0-4.0); LYMPHOCYTES % (AUTO) 22 % (12-44); MEAN CORPUSCULAR HEMOGLOBIN 33 pg (25-34); MEAN CORPUSCULAR HGB CONC 35 g/dL (32-36); MEAN CORPUSCULAR VOLUME 95 fL (80-99); MEAN PLATELET VOLUME 12.4 fL (9.0-12.2); MONOCYTES # (AUTO) 0.4 10^3/uL (0.0-1.0); MONOCYTES % (AUTO) 7 % (0-12); NEUTROPHILS # (AUTO) 4.8 10^3/uL (1.8-7.8); NEUTROPHILS % (AUTO) 71 % (42-75); PLATELET COUNT 186 10^3/uL (130-400); WHITE BLOOD COUNT 6.8 10^3/uL (4.3-11.0)
[2022-07-03] MEDS: D5 LR IV SOLUTION 1,000 ML IV SCH (19:27)
[2022-07-03] MEDS: LABETALOL 200 MG (NORMODYNE) TAB PO SCH (19:27)
[2022-07-03 19:50] LABS: BILIRUBIN,URINE NEGATIVE (NEGATIVE); CLARITY,URINE CLEAR; COLOR,URINE YELLOW; GLUCOSE, URINE (UA) NEGATIVE (NEGATIVE); KETONES,URINE NEGATIVE (NEGATIVE); LEUKOCYTE ESTERASE ,URINE TRACE (NEGATIVE); NITRITE,URINE NEGATIVE (NEGATIVE); PH,URINE 7.5 (5-9); PROTEIN,URINE TRACE (NEGATIVE)
[2022-07-03 20:36] LABS: BACTERIA,URINE TRACE /HPF; SQUAMOUS EPITHELIAL CELL,UR 0-2 /HPF; WBC,URINE 0-2 /HPF
[2022-07-03] MEDS ORDERED: CATHETER FLUSH 10 ML SYR IV SCH (22:00)
[2022-07-04] VITALS (22 sets, daily range): BP systolic 107–171; BP diastolic 55–99
[2022-07-04] MEDS: D5 LR IV SOLUTION 1,000 ML IV SCH ×2 (01:14→08:26)
[2022-07-04] MEDS ORDERED: LABETALOL HCL 20 MG/4 ML VIAL IV ONE (01:45)
[2022-07-04] MEDS ORDERED: LABETALOL HCL 20 MG/4 ML VIAL ONE (01:51)
[2022-07-04] MEDS ORDERED: FLU QUADRIvalent (6 months+) 60 mcg/0.5 ml 2022-23 (Fluzone) IM ONE (06:45)
[2022-07-04] MEDS ORDERED: fentaNYL 2 mcg/ml BUPIVA 0.125 100 ML ONE (07:30)
[2022-07-04] MEDS ORDERED: OXYTOCIN PRE-MIX DRIP 500 ML IV SCH ×2 (07:30→12:30)
--- NOTE | 2022-07-04 08:05 | History & Physical-OB ---
REBECA BAER 07/04/22 0805: OB - Chief Complaint & HPI Date/Time Date of Admission: Date of Admission: Jul 03, 2022 at 17:20 Date seen by a Provider: Jul 04, 2022 Time Seen by a Provider: 07:45 Chief Complaint/History OB-Reason for Admission/Chief: Induction of Labor Hx : 2 Hx Para: 1 Hx Last Menstrual Period: 10/10/21 Expected Date of Delivery: Jul 17, 2022 Gestational Age in Weeks: 38 Gestational Age in Days: 1 Indication for induction: medical complication (pre-eclampsia) Admission Nurse Assessment Rev: Yes Allergies and Home Medications Allergies Coded Allergies: No Known Drug Allergies (Unverified , 01/14/19) Patient Home Medication List Home Medication List Reviewed: Yes Acetaminophen (Tylenol) 325 Mg Capsule, 2 TAB PO Q6H, (Reported) Entered as Reported by: SEBASTIEN LORD on 01/23/19 1404 Calcium Carbonate (Tums) 300 Mg Tab.chew, 300 MG PO PRN, (Reported) Entered as Reported by: SEBASTIEN LORD on 01/23/19 1404 Famotidine (Pepcid) 40 Mg Tablet, 40 MG PO DAILY, (Reported) Entered as Reported by: SEBASTIEN LORD on 01/23/19 140 Ibuprofen (Ibu) 600 Mg Tablet, 600 MG PO Q6HR Prescribed by: GALE YANG on 01/25/19 0721 Vit W-Ca,Fe,FA(<1 mg) ( Vitamins) 1 Each Tablet, 1 EACH PO DAILY, (Reported) Entered as Reported by: SEBASTIEN LORD on 01/23/19 1404 OB - History Hx of Present Care: Yes Ultrasounds: Normal mid trimester US Obstetrical Complications: Pre-eclampsia Medical Complications: None Information Induced Hypertension: Yes Maternal Gestational Diabetes: No Hemorrhage: No Obstetrical History Hx : 2 Hx Para: 1 Hx # Term Pregnancies: 1 Hx # Pregnancies: 0 Number of Living Children: 1 Hx Termination: No Hx Total # of Abortions (Spona: 0 Hx Multiple Gestation: No Hx Ectopic : No Hx Stillbirth: No Hx Complication: No Hx Induced Hypertens: No Hx Maternal Gestational Diabet: No Hx Hemorrhage: No Delivery History Hx Dystocia: No Hx Forceps Assisted Delivery: No Hx Vacuum Extraction Assisted: No Hx Placenta Abnormality: No Hx Distress: No Hx Large For Gestational Age I: No Hx Small for Gestational Age I: No Hx Section: No Hx Vaginal Delivery Post C-Sec: No Hx Blood Disorders: No Adverse Rxn to Tranfusion: No Patient Past Medical History Patient denies any past medical history. Past surgicla history includes wisdom teeth extraction. Social History/Family History Alcohol Use: Denies Use Recreational Drug Use: No Smoking Cessation: Current some day smoker (Patient vapes) 2nd Hand Smoke Exposure: Yes Immunizations Influenza Vaccine Up-to-Date: No; Not Current Hepatitis A: Yes Hepatitis B: Yes Tetanus Booster (TDap): Less than 5yrs Date of Pneumonia Vaccine: Nov 15, 2018 Rubella: immune RPR/VDRL: Negative GBS Status: Negative HBsAG: Negative OB - Admission Exam Physical Exam Vitals: Vital Signs 07/03/22 07/04/22 19:20 06:55 Temp 36.8 Pulse 60 Resp 20 B/P (MAP) 143/69 (93) Pulse Ox 97 O2 Delivery Room Air HEENT: Moist Membranes Heart: Rhythm Normal Lungs: Clear Abdomen: Non tender Extremities: Normal Reflexes: Normal Cervical Dilatation: 3cm Effacement: 50% Station: -2 Membranes: Ruptured Amniotic Fluid: Clear Heart Rate: 120's Accelerations: Accelerations Present Decelerations: No Decelerations Short Term Variability: Present Equipment Service Technician Variability: Average (6-25) Contractions on Admission: None Date/Time Contractions Began;: 07/04/22 Frequency of Contractions: Currently every 3-4 minutes Duration: less than a minute Intensity: Mild Vuong Scoring Tool (Modified) Dilation (cm): 3-4cm (2) Effacement (%): 51-79% (2) Descent/Station: -2 (1) Cervix Consistency: Medium(1) Cervix Position: Middle/Mid-Position (1) Add 1 point for: Pre-eclampsia (1) Vuong Score: 8 Labs Laboratory Tests Test 07/03/22 18:05 07/03/22 18:20 Range/Units Urine Color YELLOW Urine Clarity CLEAR Urine pH 7.5 5-9 Urine Specific [place] 1.015 L 1.016-1.022 Urine Protein TRACE H NEGATIVE Urine Glucose (UA) NEGATIVE NEGATIVE Urine Ketones NEGATIVE NEGATIVE Urine Nitrite NEGATIVE NEGATIVE Urine Bilirubin NEGATIVE NEGATIVE Urine Urobilinogen 0.2 < = 1.0 MG/DL Urine Leukocyte Esterase TRACE H NEGATIVE Urine RBC (Auto) TRACE-I H NEGATIVE Urine RBC NONE /HPF Urine WBC 0-2 /HPF Urine Squamous Epithelial Cells 0-2 /HPF Urine Crystals NONE /LPF Urine Bacteria TRACE /HPF Urine Casts NONE /LPF Urine Mucus NEGATIVE /LPF Urine Culture Indicated CULTURE PENDING White Blood Count 6.8 4.3-11.0 10^3/uL Red Blood Count 3.76 L 3.80-5.11 10^6/uL Hemoglobin 12.4 11.5-16.0 g/dL Hematocrit 36 35-52 % Mean Corpuscular Volume 95 80-99 fL Mean Corpuscular Hemoglobin 33 25-34 pg Mean Corpuscular Hemoglobin Concent 35 32-36 g/dL Red Cell Distribution Width 12.3 10.0-14.5 % Platelet Count 186 130-400 10^3/uL Mean Platelet Volume 12.4 H 9.0-12.2 fL Immature Granulocyte % (Auto) 0 % Neutrophils (%) (Auto) 71 42-75 % Lymphocytes (%) (Auto) 22 12-44 % Monocytes (%) (Auto) 7 0-12 % Eosinophils (%) (Auto) 0 0-10 % Basophils (%) (Auto) 0 0-10 % Neutrophils # (Auto) 4.8 1.8-7.8 10^3/uL Lymphocytes # (Auto) 1.5 1.0-4.0 10^3/uL Monocytes # (Auto) 0.4 0.0-1.0 10^3/uL Eosinophils # (Auto) 0.0 0.0-0.3 10^3/uL Basophils # (Auto) 0.0 0.0-0.1 10^3/uL Immature Granulocyte # (Auto) 0.0 0.0-0.1 10^3/uL OB - Assessment/Plan/Diagnosis Assessment Assessment: induction of labor Admission Dx Patient is a 32yo F that is at 38w1d. She presented to the hospital yesterday around 17:30 after being diagnosed with pre-eclampsia by her peripheral vascular tech at an office visit yesterday. She was not having contractions at the time she was admitted. Patient had a trace amount of protien in her urine and her BP has been elevated since being admitted with systolic as high as 173 and diastolic as high as 114. She was started on misoprostol and began having contractions early this morning. Patient is uncertain as to what exact time contractions began. Patient was awake, sitting up in bed at the beginning of the interview. Says her contractions are 3-4 minutes apart and last less than a minute. Patient denies having headaches, changes in vision, swelling of her extremities, chest pain, SOB, nausea, and vomiting. Admission Status: Observation Plan Plan: Induction Induction Method: per Pitocin Protocol Other Plan 1) Pre-eclampsia without severe features - lebatalol 20mg has been given to control the patient's blood pressure - continue to monitor patient for severe features - continue with induction 2) Induction - patient has received misoprostol 50mcg - IV oxytocin/sodium chloride has been started - continue to monitor cervical changes and heart rate JORDAN SINGLETON 07/04/22 0930: Allergies and Home Medications Allergies Coded Allergies: No Known Drug Allergies (Unverified , 01/14/19) Patient Home Medication List Acetaminophen (Tylenol) 325 Mg Capsule, 2 TAB PO Q6H, (Reported) Entered as Reported by: SEBASTIEN LORD on 01/23/19 1404 Calcium Carbonate (Tums) 300 Mg Tab.chew, 300 MG PO PRN, (Reported) Entered as Reported by: SEBASTIEN LORD on 01/23/19 1404 Famotidine (Pepcid) 40 Mg Tablet, 40 MG PO DAILY, (Reported) Entered as Reported by: SEBASTIEN LORD on 01/23/19 1404 Ibuprofen (Ibu) 600 Mg Tablet, 600 MG PO Q6HR Prescribed by: GALE YANG on 01/25/19 0721 Vit W-Ca,Fe,FA(<1 mg) ( Vitamins) 1 Each Tablet, 1 EACH PO DAILY, (Reported) Entered as Reported by: SEBASTIEN LORD on 01/23/19 1404 OB - Assessment/Plan/Diagnosis Plan Other Plan 32 yo @ 38 weeks Mild PreE GBS neg P: IOL with misoprostol Anticipate AROM and Pitocin augmentation with NVD Verification and Attestation of Medical Student E/M Service A medical student performed and documented this service in my presence. I reviewed and verified all information documented by the medical student and made modifications to such information, when appropriate. I personally performed the physical exam and medical decision making. Jordan Singleton, Jul 04, 2022,09:30 REBECA BAER Jul 04, 2022 08:05 JORDAN SINGLETON DO Jul 04, 2022 09:30
[2022-07-04] MEDS ORDERED: BUPIVACAINE 0.25% 30 ML (SENSORCAINE) VIAL ONE (08:16)
[2022-07-04] MEDS ORDERED: fentaNYL INJ 100 MCG/2 ML AMP ONE (08:16)
[2022-07-04] MEDS: LABETALOL 200 MG (NORMODYNE) TAB PO SCH ×2 (08:25→21:11)
[2022-07-04] MEDS ORDERED: CATHETER FLUSH 10 ML SYR IV PRN (09:30)
[2022-07-04] MEDS ORDERED: NALOXONE 0.4 MG/ML 1 ML (NARCAN) VIAL IV PRN ×2 (09:30→12:30)
[2022-07-04] MEDS ORDERED: fentaNYL 2 mcg/ml BUPIVA 0.125 100 ML IV SCH (09:30)
[2022-07-04] MEDS ORDERED: LACTATED RINGERS 1,000 ML IV ONE (09:30)
[2022-07-04] MEDS ORDERED: BENZOCAINE/MENTHOL (DERMOPLAST) 56 ML CAN TP PRN (12:30)
[2022-07-04] MEDS ORDERED: MEASLES,MUMPS,RUBELLA 1 EA INJ SQ ONE (12:30)
[2022-07-04] MEDS ORDERED: HYDROcodone/APAP 5 MG/325 MG (LORTAB) TAB PO PRN (12:30)
[2022-07-04] MEDS ORDERED: TETANUS,DIPTH,PERTUSS P/F (BOOSTRIX) 0.5 ML VIAL IM ONE (12:30)
[2022-07-04] MEDS ORDERED: DIBUCAINE 1% OINTMENT 30 GM TUBE TOP PRN (12:30)
--- NOTE | 2022-07-04 12:36 | OB Labor & Delivery Record ---
L&D History Date of Service Date of Service: Jul 04, 2022 History Expected Date of Delivery: Jul 17, 2022 Gestational Age in Weeks: 38 Hx : 2 Hx Para: 1 Complications Operative Indications (Cesarea: N/A-Vaginal Delivery Intrapartal Events: None Other Complications Patient admitted last night for IOL due to Mild Pre E. BP of 150s-160s/ 100s in office followed by urine P/C ratio of 0.7. L&D Stage1 Stage One Onset of Labor - Date: Jul 04, 2022 Monitors and Tracing Monitor Mode: External Heart Rate: 130 Monitor Accelerations: Uniform Monitor Decelerations: Variable Station: -3 Nursing Home Variability: Average (6-10) Short Term Variability: Present Presentation: Vertex Vital Signs VS - Last 72 Hours, by Label 07/03/22 07/03/22 07/03/22 07/03/22 18:00 18:00 18:40 18:50 Temp 36.6 36.6 Pulse 86 86 70 85 Resp 20 20 20 20 B/P (MAP) 152/97 (115) 172/114 (133) 143/71 (95) Pulse Ox 97 97 97 97 O2 Delivery Room Air Room Air Room Air Room Air 07/03/22 07/03/22 07/03/22 07/03/22 19:20 19:50 20:20 20:50 Pulse 86 99 90 80 Resp 20 20 20 20 B/P (MAP) 142/87 (105) 132/93 (106) 131/94 (106) 138/86 (103) Pulse Ox 97 O2 Delivery Room Air Room Air Room Air Room Air 07/03/22 07/03/22 07/03/22 07/03/22 21:20 21:50 22:20 22:50 Temp 36.8 Pulse 75 67 78 78 Resp 20 20 20 20 B/P (MAP) 150/84 (106) 153/100 (117) 133/94 (107) 127/84 (98) O2 Delivery Room Air Room Air Room Air Room Air 07/03/22 07/04/22 07/04/22 07/04/22 23:50 00:20 00:50 01:20 Pulse 66 91 62 60 Resp 20 20 20 20 B/P (MAP) 173/101 (125) 121/79 (93) 150/80 (103) 170/96 (120) O2 Delivery Room Air Room Air Room Air Room Air 07/04/22 07/04/22 07/04/22 07/04/22 01:50 02:25 02:55 03:25 Temp 37.0 Pulse 60 62 62 78 Resp 20 20 20 20 B/P (MAP) 146/78 (100) 154/89 (110) 153/84 (107) 133/80 (97) O2 Delivery Room Air Room Air Room Air Room Air 07/04/22 07/04/22 07/04/22 07/04/22 03:55 04:25 05:25 05:55 Temp 36.3 Pulse 59 63 86 64 Resp 20 20 20 20 B/P (MAP) 156/81 (106) 119/70 (86) 123/71 (88) 137/77 (97) O2 Delivery Room Air Room Air Room Air Room Air 07/04/22 07/04/22 07/04/22 06:25 06:55 07:30 Temp 36.8 Pulse 60 60 Resp 20 20 B/P (MAP) 143/69 (93) 143/69 (93) 156/89 (111) O2 Delivery Room Air Room Air Room Air Rupture of Membranes Spontaneous Ruture of Membrane: No Amniotic Membrane Rupture Time: 0700 Amniotic Membrane Fluid Desc.: Clear Vaginal Bleeding Description: Normal Show Progress/Notes Misoprostol PO given overnight followed by AROM this AM and Pitocin augmentation. Epidural received and the patient progressed to complete and + 2 station. L&D Stage2 Stage Two Stage II Date: Jul 04, 2022 Monitors and Tracing Monitor Mode: External Heart Rate: 130 Position: Right Occiput Anterior Presentation: Vertex Cord Descript/Complications Cord Vessel Description: 3 Vessels Delivery Type Infant Delivery Method: Spontaneous Vaginal Anterior Shoulder: Right Episiotomy/Perineal Laceration Episiotomy Description: Right Mediolateral (RML repaired using 3-0 rapide vicryl suture) Condition of Infant Delivery 1 minute Comment: 9 5 minute Comment: 9 Notes Live female infant weight 6lbs 7 oz Condition of Infant Condition of : Living Exam: No Observed Abnormalities Resuscitation Resuscitation: N/A - Spontaneous Resp L&D Stage3 Stage Three Stage III Date: Jul 04, 2022 Pictocin Pitocin Administration Comment: 30 mu wide open after delivery of placenta Placenta Delivery Placenta Delivery: Spontaneous Delivery Summary Summary Estimated blood loss (mL): 350 Condition of Delivery Examined: Cervix Examined, Uterus Explored Post Hemorrhage: No Condition of Mother stable Condition of Infant (s) stable NICOL PITT DO Jul 04, 2022 12:36
--- NOTE | 2022-07-04 12:37 | Discharge Inst-Women's Service ---
Discharge Inst-Women's Serv Depart Medication/Instructions New, Converted or Re-Newed RX: Transmitted to Pharmacy Problems Reviewed?: Yes Consults/Follow Up Additional Follow Up: Yes Activity Activity: Activity as Tolerated Driving Instructions: No Driving for 1 Week NO SMOKING: NO SMOKING Nothing Inside Vagina: No Douching, No [place], No Tampons Diet Discharge Diet: No Restrictions Symptoms to Report to : Bleeding Excessive, Pain Increased, Fever Over 101 Degrees F, Pain/Pressure in Chest, Vaginal Bleeding Increase, Questions/Concerns, Dizziness/Fainting For Any Problems or Questions: Contact Your Physician NICOL PITT DO Jul 04, 2022 12:37
[2022-07-04] MEDS ORDERED: DIBU30OI TOP (12:39)
[2022-07-04] MEDS ORDERED: IBUP-844 PO (12:39)
[2022-07-04] MEDS ORDERED: DOCU100C37 PO (12:39)
[2022-07-04] MEDS ORDERED: FERR325T24 PO (12:39)
[2022-07-04] MEDS ORDERED: LABE200T10 PO (12:39)
[2022-07-04] MEDS ORDERED: BENZ78AE5 TP (12:39)
[2022-07-04] MEDS ORDERED: ACHD5005 PO (12:39)
[2022-07-04] MEDS ORDERED: CATHETER FLUSH 10 ML SYR IV SCH (14:00)
[2022-07-04] MEDS: IBUPROFEN 600 MG (MOTRIN) TAB PO SCH ×2 (14:46→20:41)
[2022-07-04] MEDS: WITCH HAZEL(TUCKS) 40 EA JAR TOP PRN (14:46)
[2022-07-04] MEDS: DOCUSATE SODIUM 100 MG (COLACE) CAP PO SCH (20:40)
[2022-07-05 01:57] VITALS: BP 139/76
[2022-07-05] MEDS: IBUPROFEN 600 MG (MOTRIN) TAB PO SCH ×3 (01:57→14:00)
[2022-07-05 05:32] LABS: BASOPHILS % (AUTO) 0 % (0-10); EOSINOPHILS # (AUTO) 0.1 10^3/uL (0.0-0.3); EOSINOPHILS % (AUTO) 1 % (0-10); HEMATOCRIT 37 % (35-52); HEMOGLOBIN 12.5 g/dL (11.5-16.0); LYMPHOCYTES # (AUTO) 2.4 10^3/uL (1.0-4.0); LYMPHOCYTES % (AUTO) 26 % (12-44); MEAN CORPUSCULAR HEMOGLOBIN 33 pg (25-34); MEAN CORPUSCULAR HGB CONC 33 g/dL (32-36); MEAN CORPUSCULAR VOLUME 98 fL (80-99); MEAN PLATELET VOLUME 11.8 fL (9.0-12.2); MONOCYTES # (AUTO) 0.6 10^3/uL (0.0-1.0); MONOCYTES % (AUTO) 6 % (0-12); NEUTROPHILS # (AUTO) 6.3 10^3/uL (1.8-7.8); NEUTROPHILS % (AUTO) 67 % (42-75); PLATELET COUNT 185 10^3/uL (130-400); WHITE BLOOD COUNT 9.4 10^3/uL (4.3-11.0)
[2022-07-05] MEDS ORDERED: PRENATAL VITAMIN 1 EA TAB PO SCH (07:00)
[2022-07-05] MEDS ORDERED: FERROUS SULF 325 MG (IRON) TAB PO SCH (09:00)
--- NOTE | 2022-07-05 09:29 | Progress Note ---
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 Singleton. Patient received IV Labetalol for preeeclampsia during labor and oral Labetalol 200 mg bid continued . Patient was not on Labetalol prior to labor admission. No hx of preeclampsia. BPs have been mostly in normal range . Patient doing well and without complaints. Dr. Singleton has placed patient on Labetalol with plans for patient to get BP check in clinic in 1 week. Patient possibly may go home this afternoon if baby ready to go home, knows to call clinic Thursday to schedule 1 week follow up. Patient without complaints, no questions or concerns voiced. VSS/AF HCT/PLT 37/185 LCTAB CV RRR Uterus firm U-6 cm, no heavy lochia, no lower extremity edema or calf pain Final Diagnosis #1 State, after vaginal delivery -Doing well from obstetrical standpoint, able to go home later today if baby discharged #2 Preeclampsia during labor -BP stable on oral Labetalol 200 mg bid, will go home on same -Follow up with Dr. Singleton in 1 week for BP check REJI MANCUSO DO Jul 05, 2022 09:29
[2022-07-05 11:00] VITALS: BP 120/78
[2022-07-05] MEDS: DOCUSATE SODIUM 100 MG (COLACE) CAP PO SCH (11:04)
[2022-07-05] MEDS: LABETALOL 200 MG (NORMODYNE) TAB PO SCH (11:04)
[2022-07-05] MEDS: WITCH HAZEL(TUCKS) 40 EA JAR TOP PRN (11:16)
--- NOTE | 2022-07-05 12:54 | Anesthesia-Regional Post-Op ---
Regional Patient Condition Mental Status: Alert, Oriented x3 Circulation: Same as Pre-Op Headache: Absent Sensation: Full Recovery Motor Block: Absent Post Op Complications Complications None Follow Up Care/Instructions Patient Instructions None needed. Anesthesia/Patient Condition Patient is doing well, no complaints, stable vital signs, no apparent adverse anesthesia problems. No complications reported per nursing. FARNAZ SIMPSON CRNA Jul 05, 2022 12:54
== END 2022-07-05 14:30 | disposition home or self-care (01) | DRG 807 ==
LOC: LDRP 17:20 → UNDOADMIN 17:50 → LDRP 17:50
PROVIDERS: ADMIT Obstetrics & Gynecology; ATTEND Obstetrics & Gynecology
PROC: 3E0DXGC Introduction of Other Therapeutic Substance into Mouth and Pharynx, External Approach (ICD-10-PCS; 2022-07-03)
PROC: 10E0XZZ Delivery of Products of Conception, External Approach (ICD-10-PCS; principal; 2022-07-04)
PROC: 0W8NXZZ Division of Female Perineum, External Approach (ICD-10-PCS; 2022-07-04)
DX: O14.04 Mild to moderate pre-eclampsia, complicating childbirth (principal); Z37.0 Single live birth; O99.333 Smoking (tobacco) complicating pregnancy, third trimester; F17.290 Nicotine dependence, other tobacco product, uncomplicated; Z3A.38 38 weeks gestation of pregnancy
CPT/HCPCS: 36415; 81000; 85025; 86780; 86850; 86900; 86901; 87088

== ENCOUNTER → 2022-07-03 | Outpatient (CLI) | payer OTHER ==
[~2022-07-03] MED LIST changes: +ACHD5005 PO; +BENZ78AE5 TP; +DIBU30OI TOP; +DOCU100C37 PO; +FERR325T24 PO; +LABE200T10 PO
== END ==
LOC: LABNPT 15:34
PROVIDERS: ATTEND Obstetrics & Gynecology
DX: Z01.89 Encounter for other specified special examinations (principal)
CPT/HCPCS: 82570; 84156